=== PATIENT | male | born 1970 | race Caucasian/White ===

== ENCOUNTER 2016-07-25 18:45 | Emergency (ER) | payer OTHER ==
[~2016-07-25] VITALS: Ht 172.7 cm; Wt 93.0 kg
[2016-07-25 18:54] VITALS: BP 141/86; PULSE 93; TEMP 98.3; O2SAT 97
[2016-07-25] MEDS ORDERED: ASPI81CH CHEW (18:54)
[2016-07-25] MEDS ORDERED: LIDOCAINE 1%/EPINEPHrine 1:100,000 SOLN 20 ML VIAL INFIL ONE (19:15)
[2016-07-25] MEDS ORDERED: DIPHTH/TETANUS/ACEL PERTUSSIS (BOOSTER) 0.5 ML VIAL/PFS IM ONE (19:15)
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
[2016-07-25] MEDS ORDERED: NAPR500 PO (19:54)
--- NOTE | 2016-07-25 19:54 | PD ---
Data Data Last Documented VS Vital Signs Date Time Temp Pulse Resp B/P Pulse Ox O2 Delivery O2 Flow Rate FiO2 07/25/16 18:54 98.3 93 141/86 97 Orders Chest, Pa & Lat (07/25/16 ) Knee, Complete (4vws) (07/25/16 ) Qnfq-Est-Ldtoij (Booster) Inj (Boostrix (07/25/16 19:15) Lidocai-Epi 1%-1:100,000 Inj (Xylocaine- (07/25/16 19:15) MDM Supervised Visit with JOVANI: No Diagnosis Primary Impression: Facial laceration Qualified Code: S01.81XA - Facial laceration, initial encounter Additional Impression: Knee pain Qualified Code: M25.562 - Acute pain of left knee Patient Instructions: General Instructions Departure Forms: Tests/Procedures Additional Instruction: Keep wound clean and dry. Do not wet for 24 hours. After 24 hours and clean the wound gently with soap and water. Gently clean wound twice daily with soap and water. Do not soak wound. No swimming, hot tubs, or allowing wound to get too wet. Apply antibiotic ointment to wound twice daily. Return to the emergency department for any worsening pain, swelling, redness, significant bleeding, or any other new or worsening symptoms. Sutures will dissolve over 7-10 days. Use Naprosyn as needed for pain and body aches. You will likely be more sore tomorrow. You may have soreness in your neck, back , arms or legs. You should not have any chest pain, trouble breathing, abdominal pain, worsening headache, numbness or tingling, or difficulty walking. If any of these other symptoms develop he should return to the emergency Department immediately. Follow-up with her primary physician if you're not completely well in 5-7 days. Med/Other Pt SpecificInfo: Prescription(s) given Scripts Naproxen (Naprosyn)500 Mg Ndq238 Mg PO BID PRN (PAIN SCALE 1 TO 10) #20 TAB Prov:Kyler Aelman MD 07/25/16 Disposition: 01 DISCHARGE HOME Condition: Stable Kyler Aleman MD July 25, 2016 19:54
[2016-07-25] MEDS ORDERED: NAPROXEN 500 MG TAB PO ONE (20:00)
[2016-07-25] MEDS ORDERED: SODIUM CHLOR 0.9% 1000 ML INJ 1,000 ML IV ONE (21:15)
== END 2016-07-25 22:26 | disposition home or self-care (01) ==
LOC: NEPE 18:45
DX: S01.81XA Laceration without foreign body of other part of head, initial encounter (principal); M25.562 Pain in left knee; Z23 Encounter for immunization; Z72.0 Tobacco use; V23.4XXA Motorcycle driver injured in collision with car, pick-up truck or van in traffic accident, initial encounter; Y93.9 Activity, unspecified; Y92.9 Unspecified place or not applicable; Y99.9 Unspecified external cause status
CPT/HCPCS: 12052; 71020; 73564; 90471; 90715